=== PATIENT | female | born 1960 | race Two or more races ===

== ENCOUNTER 2024-02-13 18:33 | Emergency (ER) | payer OTHER, MEDICAID ==
[~2024-02-13] VITALS: Ht 152.4 cm; Wt 90.9 kg
[2024-02-13 19:47] VITALS: PULSE 90; RESP 17; O2SAT 96
[2024-02-13 19:49] LABS: Basophils # (auto) 0 10 ^3/uL (0-0.2); Basophils % (auto) 0.4 % (0.0-2.0); Eosinophils # (auto) 0.2 10 ^3/uL (0-0.8); Eosinophils % (auto) 2.4 % (0.0-7.0); Hematocrit 37.2 % (36.0-46.0); Lymphocytes # (auto) 2.4 10 ^3/uL (0.4-5.4); Lymphocytes % (auto) 29.9 % (10.0-50.0); Mean Corpuscular Hemoglobin 28.6 pg (28.0-32.0); Mean Corpuscular Hgb Conc. 32.2 g/dL (32.0-36.0); Mean Corpuscular Volume 88.8 fL (80.0-100.0); Monocytes # (auto) 0.6 10 ^3/uL (0-1.3); Monocytes % (auto) 6.8 % (0.0-12.0); Neutrophils # (auto) 4.9 10 ^3/uL (1.6-8.6); Neutrophils % (auto) 60.5 % (37.0-80.0); Red Cell Distribution Width 16.2 % (11.8-14.3); White Blood Cell 8.2 10^3/uL (4.4-10.8)
[2024-02-13] MEDS: SODIUM CHLORIDE 0.9% 1,000 ML IVB ONE (20:10)
[2024-02-13] MEDS: InsuLIN REG 1unit/0.01ml Soln (100units/ml) IV ONE (20:11)
[2024-02-13 20:15] LABS: Alanine Aminotransferase 148 U/L (7-40); Albumin 4.7 g/dL (3.2-4.8); Alkaline Phosphatase 168 U/L (46-116); Anion Gap 9 (5-15); Aspartate Aminotransferase 35 U/L (13-40); Blood Alcohol < 3.0 mg/dL (<10); Blood Urea Nitrogen 10 mg/dL (9-23); Calcium 9.7 mg/dL (8.5-10.1); Carbon Dioxide 26 mmol/L (20-30); Chloride 102 mmol/L (98-107); Glucose 339 mg/dL (74-106); Magnesium 1.5 mg/dL (1.6-2.6); Potassium 4.4 mmol/L (3.5-5.1); Sodium 137 mmol/L (136-145)
[2024-02-13 20:16] LABS: Bilirubin, Total 0.5 mg/dL (0.2-1.0); Total Protein 7.8 g/dL (5.7-8.2)
[2024-02-13 20:19] LABS: Salicylate < 3.0 mg/dL (2.8-20.0)
[2024-02-13] MEDS: ACETAMINOPHEN 325 MG TAB PO ONE (20:21)
[2024-02-13 21:06] LABS: Amphetamine Screen, Urine Neg (NEGATIVE); Barbiturate Scree,Urine Neg (NEGATIVE)
[2024-02-13 21:07] LABS: Benzodiazephine Screen, Urine Neg (NEGATIVE); Cannabinoid Screen, Urine Neg (NEGATIVE); Cocaine Screen, Urine Neg (NEGATIVE); Opiate Scree,Urine Pos (NEGATIVE); Phencyclidine Screen, Urine Neg (NEGATIVE)
[2024-02-14] MEDS: ACETAMINOPHEN 325 MG TAB PO ONE (05:24)
[2024-02-14 05:30] LABS: Urine Bacteria MANY /hpf (None Seen); Urine Blood TRACE /uL (Negative); Urine Budding Yeast FEW /hpf (None Seen); Urine Clarity Turbid (Clear); Urine Color Light-Orange (Yellow); Urine Protein, UAD TRACE (Negative); Urine Specific Gravity 1.023 (1.001-1.035); Urine Urobilinogen Normal (Negative); Urine WBC 273 /hpf (0 - 5)
[2024-02-14 07:31] VITALS: PULSE 79; RESP 19; O2SAT 98
[2024-02-14] MEDS: cefTRIAXone 1GM/50ML D5W 50 ML IV SCH (08:06)
[2024-02-14] MEDS: ACETAMINOPHEN 325 MG TAB PO PRN (12:11)
[2024-02-14] MEDS ORDERED: BUSP10TA31 PO (15:11)
[2024-02-14] MEDS ORDERED: LEV150T PO (15:11)
[2024-02-14] MEDS ORDERED: ARIP1TAB59 PO (15:11)
[2024-02-14] MEDS ORDERED: HYDR-4902 PO (15:12)
[2024-02-14] MEDS ORDERED: ATOR-507 PO (15:12)
[2024-02-14] MEDS ORDERED: GLIP10TA9 PO (15:16)
[2024-02-14] MEDS ORDERED: METF-370 PO (15:16)
[2024-02-14] MEDS ORDERED: PANT40TA2 PO (15:16)
[2024-02-14] MEDS ORDERED: CLOP75TA28 PO (15:16)
[2024-02-14] MEDS ORDERED: SERT50TA PO (15:17)
[2024-02-14] MEDS ORDERED: LISI20TA56 PO (15:17)
[2024-02-14] MEDS ORDERED: ATEN25TA PO (15:17)
[2024-02-14] MEDS ORDERED: DULO60CA41 PO (15:24)
[2024-02-14] MEDS ORDERED: GABA250S7 PO (15:24)
[2024-02-14] MEDS ORDERED: NIC21P TOP (15:25)
[2024-02-14] MEDS ORDERED: QUET200T4 PO (15:25)
[2024-02-14] MEDS: HYDROcodone-ACET 5/325MG TAB PO PRN (16:20)
[2024-02-14] MEDS ORDERED: DEXTROSE (50%) 50ML SYRG IV PRN (16:30)
[2024-02-14] MEDS: InsuLIN REG 1unit/0.01ml Soln (100units/ml) SC SCH (17:00)
[2024-02-14] MEDS: ACCU-CHEK COMFORT CURVE STRIP VI SCH (17:25)
[2024-02-14] MEDS: glipiZIDE 5 MG TAB PO SCH (18:09)
[2024-02-14] MEDS: metFORMIN HYDROCHLORIDE 500 MG TAB PO SCH (18:09)
[2024-02-14] MEDS: MAGNESIUM SULFATE 1GM/100ML 100 ML IV SCH (21:08)
[2024-02-14 22:00] VITALS: PULSE 83; RESP 15; O2SAT 98
[2024-02-14] MEDS: GABAPENTIN 300 MG CAP PO SCH (22:10)
[2024-02-14] MEDS: ATORVASTATIN 20 MG TAB PO SCH (22:10)
[2024-02-14] MEDS: busPIRone HCL 10 MG TAB PO SCH (22:10)
[2024-02-15 08:20] VITALS: PULSE 78; RESP 17; O2SAT 96
[2024-02-15] MEDS: CLOPIDOGREL BISULFATE 75 MG TAB PO SCH (09:08)
[2024-02-15] MEDS: DULoxetine HCL 30 MG CAP PO SCH (09:08)
[2024-02-15] MEDS: SERTRALINE HCL 50 MG TAB PO SCH (09:08)
[2024-02-15] MEDS: ATENOLOL 25 MG TAB PO SCH (09:09)
[2024-02-15] MEDS: PANTOPRAZOLE 40 MG TAB PO SCH (09:17)
[2024-02-15] MEDS: LEVOTHYROXINE SODIUM 50 MCG TAB PO SCH (09:31)
[2024-02-15] MEDS: ARIPIPRAZOLE 5 MG PO SCH (09:33)
[2024-02-15] MEDS: Quetiapine Fumerate (Seroquel Xr) 200 MG PO SCH (09:34)
[2024-02-15] MEDS: HYDROcodone-ACET 5/325MG TAB PO PRN (10:47)
[2024-02-15] MEDS: LORazepam 0.5 MG TAB PO PRN (11:00)
[2024-02-15 11:56] VITALS: BP 125/55; PULSE 61; RESP 16; TEMP 98; O2SAT 97
== END 2024-02-15 12:20 | disposition short-term general hospital (02) ==
LOC: EDBD 18:33 → ER 18:33
DX: R45.851 Suicidal ideations (principal); F32.A Depression, unspecified
CPT/HCPCS: 36415; 80053; 80307; 80320; 80329; 81001; 82962; 83735; 85025; 87086; 96361; 96365; 96366; 96367; 96375; 99285; J0696; J1815; J7030